=== PATIENT | male | born 1950 | race Caucasian/White ===

== ENCOUNTER 2021-01-10 18:23 | Emergency (ER) | payer MEDICARE, SELFPAY ==
[2021-01-10] VITALS (7 sets, daily range): BP systolic 113–139; BP diastolic 58–75; PULSE 65–79; RESP 16; TEMP 37.1; O2SAT 94–98; BMI 29.0
--- NOTE | 2021-01-10 18:40 | DI.RAD.S_ITS ---
PROCEDURE: XR CHEST 2V INDICATIONS: SOB/pop sensation in ribs TECHNIQUE: 2 views of the chest were acquired. COMPARISON: None. FINDINGS: Surgical changes and devices: None. Lungs and pleura: Lungs are clear. No pleural effusions or pneumothorax. Mediastinum: Mediastinal contours are normal. Heart size is normal. Bones and chest wall: No suspicious bony abnormalities. Soft tissues appear unremarkable. There is a right shoulder prosthesis. IMPRESSION: No acute cardiopulmonary disease. Dictated by: Sid Guan M.D. on 01/10/2021 at 18:58 Approved by: Sid Guan M.D. on 01/10/2021 at 18:59
[2021-01-10] MEDS: SODIUM CHLORIDE 0.9% 1,000 ML 150 ML IV (20:07)
--- NOTE | 2021-01-10 20:10 | ED_ITS ---
HPI - Chest Pain General Chief Complaint: Abdominal Pain Stated Complaint: RIGHT SIDE PAIN Time Seen by Provider: 01/10/21 19:54 Source: patient and family Mode of arrival: Ambulatory Limitations: no limitations History of Present Illness HPI narrative: This is a 71-year-old male comes emergency department with comp laint of right-sided chest and abdominal pain that started 3 days ago. Patient states he leaned over towards the right to reach across some furniture and felt a pop sensation. He has continued to have pain, it was initially just in the right chest but now radiating more into the right abdomen. Patient states he is quite uncomfortable. He has significant pain with movement, cough, sneeze, deep inhalation of if patient changes position. He denies fevers or chills. He denies any shortness of breath or worsening of his breathing other than it is painful to take a deep breath. He denies any nausea or vomiting. No cough. No hemoptysis. He denies any diarrhea, no constipation. No syncope or lightheadedness. Denies any dizziness. Denies any radiation of pain to his back or down his legs. Patient states he has a history of asthma which has not needed his meds for. He also takes Percocet and gabapentin for chronic pain. He has had 5 back surgeries, knee and shoulder surgery multiple abdominal surgeries including hernia repair with mesh which was subsequently infected, he had open wound for multiple days and hospitalization for 11 days which took a year and a half to heal fully. This was 2 or 3 years ago. He is allergic to codeine but states he tolerates other narcotics fine. Does not take any blood thinners. No tobacco, no alcohol, occasional THC. He is currently visiting family in the area and lives south of [facility] in [place]. Related Data Previous Rx's Medication Instructions Recorded meloxicam [Mobic] 7.5 mg PO DAILY PRN #14 tab 01/10/21 Allergies Allergy/AdvReac Type Severity Reaction Status Date / Time codeine Allergy Hives Verified 01/10/21 20:47 Review of Systems Review of Systems ROS Unobtainable: All systems reviewed & are unremarkable except as noted in HPI and below Patient History Medical History (Updated 01/11/21 @ 02:57 by Louise Webb DO) Asthma Substance Use Type: marijuana Exam Narrative Exam Narrative: GENERAL: Alert and oriented x three, well-nourished male in moderate distress. Patient is significantly more uncomfortable with movement. HEENT: Head normocephalic, atraumatic, EOMI, pupils reactive, face symmetric, moist mucous membranes NECK: Supple, full range of motion CARDIOVASCULAR: Regular rate and rhythm without murmurs, rubs or gallops. RESPIRATORY: Breath sounds equal bilaterally, no wheezes rales or rhonchi. Patient does have some point tenderness of the right ribs over the lateral ribs at 7 8 region. There is no ecchymosis, no flail chest with normal movement. ABDOMEN: Soft, for right upper quadrant tenderness. Normoactive bowel sounds all 4 quadrants. No guarding or rebound, rigidity, no mass or bruit. No ecchymosis or skin changes noted. No bulge or hernia noted. : No CVA tenderness EXTREMITIES: Normal range of motion, no clubbing or edema. Neurovascularly intact NEUROLOGICAL: Cranial nerves II through XII grossly intact. Moving all extremities SKIN: Warm, dry, no petechiae, no rashes or lesions. Initial Vital Signs Initial Vital Signs: Vital Signs Temperature 98.8 F 01/10/21 18:31 Pulse Rate 79 01/10/21 18:31 Respiratory Rate 16 01/10/21 18:31 Blood Pressure 126/74 01/10/21 18:31 Pulse Oximetry 96 01/10/21 18:31 Course Orders Ordered: ED Orders 01/10/21 18:40 XR chest 2V Stat 01/10/21 19:54 EKG-12 Lead Stat 01/10/21 20:34 Complete Blood Count AUTO DIFF Stat Comprehensive Metabolic Panel Stat Lipase Stat NT-proBNP (BNP-Adult 18+) Stat Troponin & CK Cardiac Panel Stat 01/10/21 21:01 D Dimer Stat Discontinued Medications Sodium Chloride (Normal Saline 0.9%) 1,000 mls @ 150 mls/hr IV CONT KRISTEL Last Infusion: 01/10/21 23:05 Dose: 0 mls/hr Documented by: [email or web address] Admin: 01/10/21 20:07 Dose: 150 mls/hr Documented by: [email or web address] Ketorolac Tromethamine (Ketorolac 30 Mg/Ml Vial) 15 mg IV NOW ONE Stop: 01/10/21 21:55 Last Admin: 06/07/21 22:02 Dose: 15 mg Documented by: [email or web address] Morphine Sulfate (Morphine 4 Mg/Ml Inj) 4 mg IV NOW ONE Stop: 01/10/21 20:41 Last Admin: 01/10/21 21:43 Dose: Not Given Documented by: [email or web address] Vital Signs Vital signs: Vital Signs - 8 hr 01/10/21 21:16 01/10/21 21:30 01/10/21 22:00 Pulse Rate 72 66 66 Respiratory Rate 16 Blood Pressure 113/73 121/75 Pulse Oximetry 96 96 96 01/10/21 22:01 01/10/21 22:30 01/10/21 23:00 Pulse Rate 66 65 65 Respiratory Rate Blood Pressure 117/58 L 139/75 119/74 Pulse Oximetry 96 94 96 MDM - Chest Pain Lab Data Attestation: I reviewed the patient's lab results. Result diagrams: 01/10/21 20:34 01/10/21 20:34 Labs: Lab Results 01/10/21 01/10/21 01/10/21 Range/Units 20:34 20:34 21:01 WBC 5.4 (4.5-11.0) X10^3/uL RBC 4.10 L (4.5-5.9) X10^6/uL Hgb 13.2 L (13.5-17.5) g/dL Hct 38.7 L (41-53) % MCV 94.3 (80-100) fL MCH 32.2 (26-34) PG MCHC 34.1 (30-36) % RDW 13.2 (11.6-14.8) % Plt Count 157 (150-400) X10^3/uL Neut % (Auto) 52.9 (50-75) % Lymph % (Auto) 31.4 (25-40) % [place] % (Auto) 8.6 (3-14) % Eos % (Auto) 6.7 H (2-4) % Baso % (Auto) 0.4 (0-2) % Neut # (Auto) 2900 (9118-9671) /uL Lymph # (Auto) 1700 (1827-8263) /uL [place] # (Auto) 500 (0-900) /uL Eos # (Auto) 400 (0-450) /uL Baso # (Auto) 0 (0-100) /uL D-Dimer < 200 (<230) ng/mL Sodium 140 (137-145) mmol/L Potassium 3.9 (3.4-5.1) mmol/L Chloride 108 H (98-107) mmol/L Carbon Dioxide 27 (22-32) mmol/L BUN 17 (9-20) mg/dL Creatinine 0.64 L (0.66-1.25) mg/dL Estimated GFR > 60.0 (>60) mL/min BUN/Creatinine Ratio 26.6 H (6-22) Glucose 118 H (80-110) mg/dL Calcium 9.2 (8.4-10.2) mg/dL Total Bilirubin 0.3 (0.2-1.3) mg/dL AST 24 (17-59) IU/L ALT 17 (<50) IU/L Alkaline Phosphatase 84 (38-126) U/L Total Creatine Kinase 117 (55-170) U/L CK-MB (CK-2) 1.24 (<2.37) ng/mL CK-MB (CK-2) Rel Index 1.1 L (1.5-5.0) % Troponin I < 0.012 (0.01-0.034) ng/mL NT-Pro-B Natriuret Pep 70 (<125) pg/mL Total Protein 7.1 (6.3-8.2) g/dL Albumin 4.0 (3.5-5.0) g/dL Globulin 3.1 (1.7-4.1) g/dL Albumin/Globulin Ratio 1.3 (1.0-2.8) Lipase 148 (23-300) U/L Imaging Data Chest x-ray: Radiologist's Impression: [address] [id number] ReportSigned Patient: Lino Vann R#: [id number]: 9Acct:[id number]/Sex: 71 / MDate of Service: 01/10/21Loc: EDAccession Number: [id number] Procedure: XR chest 2V Ordering Provider: Louise Webb D.O. PROCEDURE: XR CHEST 2V INDICATIONS: SOB/pop sensation in ribs TECHNIQUE: 2 views of the chest were acquired. COMPARISON: None. FINDINGS: Surgical changes and devices: None. Lungs and pleura: Lungs are clear. No pleural effusions or pneumothorax. Mediastinum: Mediastinal contours are normal. Heart size is normal. Bones and chest wall: No suspicious bony abnormalities. Soft tissues appear unremarkable. There is a right shoulder prosthesis. IMPRESSION: No acute cardiopulmonary disease. Dictated by: Sid Guan M.D. on 01/10/2021 at 18:58 Approved by: Sid Guan M.D. on 01/10/2021 at 18:59 ECG Data Attestation: I personally reviewed and interpreted this ECG as follows: Prior ECG tracings: not available for review Interpretation: Sinus rhythm rate of 74 PA 186 QRS 80 QTC of 417. No acute ST changes appreciated. No priors available for review. MDM Narrative Medical decision making narrative: Discussed with patient whole likely in this is musculoskeletal but the fact that his pain has changed from his chest and moved his abdomen he has tenderness right upper quadrant recommend either CT or ultrasound imaging. Patient does not wish to CT although he is concerned about the mesh. I would be more concerned about another cause that just coincided with his initial inciting event. Patient defers CT imaging until labs are back and he is agreeable and if there are alterations. We did discuss I recommend ultrasound of his right upper quadrant with his RUQ tenderness and changing loc ation of pain. Patient's labs were reviewed. After additional pain medication patient feels more comfortable at this time. His vitals have been stable here in the department. Labs show a hemoglobin of 13, elevated eosinophil count, D- dimer is negative with a chloride of 108, glucose of 118 lab abnormalities in his cardiac or abdominal labs. On recheck patient prefers for watchful waiting and defers ultrasound or CT imaging which did discuss would allow me to rule out more significant or emergent causes of his pain. He does take Percocet normally so discussed adding a dose of meloxicam to his daily medications for short-term pain control and strict return precautions. Patient feels c omfortable with this plan he is here in town for the next several days and plans to return back home after that. He was encouraged to follow up with this primary care he is doing well but continues to have discomfort. Discharge Plan Departure Patient Disposition: Home Clinical Impression: Acute right-sided thoracic back pain, Right sided abdominal pain Instructions: DI for Abdominal Pain-Adult Activity Restrictions/Additional Instructions: Follow up your physician in then next 2-3 days for recheck. You may continue your home medications as prescribed. You may take meloxicam 1 tablet every 12 hours as needed for pain. You may take this in addition to regular pain medication. Please return for fevers, lightheadedness or passing out, rapidly worsening abdominal, chest pain, pain radiating to her back flank, persistent vomiting, black or bloody stools or other new or concerning symptoms. Prescriptions: New meloxicam [Mobic] 7.5 mg tablet 7.5 mg PO DAILY PRN (Reason: pain) Qty: 14 RF: 0
[2021-01-10 20:42] LABS: Add Manual Diff / Slide Review NO; Basophils Absolute Auto 0 /uL (0-100); Basophils Percent Auto 0.4 % (0-2); Eosinophils Absolute Auto 400 /uL (0-450); Eosinophils Percent Auto 6.7 % (2-4); Hematocrit 38.7 % (41-53); Hemoglobin 13.2 g/dL (13.5-17.5); Lymphocytes Absolute Auto 1700 /uL (1100-4500); Lymphocytes Percent Auto 31.4 % (25-40); Mean Corpuscular HGB Conc 34.1 % (30-36); Mean Corpuscular Hemoglobin 32.2 PG (26-34); Mean Corpuscular Volume 94.3 fL (80-100); Monocytes Absolute Auto 500 /uL (0-900); Monocytes Percent Auto 8.6 % (3-14); Neutrophils Absolute Auto 2900 /uL (1500-7000); Neutrophils Percent Auto 52.9 % (50-75); Platelet Count 157 X10^3/uL (150-400); Red Cell Distribution Width 13.2 % (11.6-14.8); White Blood Cell Count 5.4 X10^3/uL (4.5-11.0)
[2021-01-10 21:02] LABS: Alanine Aminotransferase 17 IU/L (<50); Albumin Globulin Ratio 1.3 (1.0-2.8); Alkaline Phosphatase 84 U/L (38-126); Aspartate Aminotransferase 24 IU/L (17-59); BUN Creatinine Ratio 26.6 (6-22); Bilirubin Total 0.3 mg/dL (0.2-1.3); Blood Urea Nitrogen 17 mg/dL (9-20); Calcium 9.2 mg/dL (8.4-10.2); Carbon Dioxide 27 mmol/L (22-32); Chloride 108 mmol/L (98-107); Creatine Kinase 117 U/L (55-170); Estimated Glomerular Filt Rate > 60.0 mL/min (>60); Globulin 3.1 g/dL (1.7-4.1); Glucose 118 mg/dL (80-110); HEMOLYSIS 23 (0-50); Lipase 148 U/L (23-300); Potassium 3.9 mmol/L (3.4-5.1); Sodium 140 mmol/L (137-145); Total Protein 7.1 g/dL (6.3-8.2)
[2021-01-10] MEDS: MORPHINE 4 MG/ML INJ (21:07)
[2021-01-10 21:14] LABS: NT-proBNP (BNP-Adult 18+) 70 pg/mL (<125); Troponin I < 0.012 ng/mL (0.01-0.034)
[2021-01-10 21:17] LABS: CKMB % Relative Index 1.1 % (1.5-5.0); Creatine Kinase MB 1.24 ng/mL (<2.37)
[2021-01-10 21:23] LABS: D Dimer < 200 ng/mL (<230)
[2021-01-10] MEDS: KETOROLAC 30 MG/ML VIAL 15 MG IV (22:02)
== END 2021-01-10 23:15 | disposition home or self-care (01) ==
PROVIDERS: Emergency Provider Emergency Medicine
DX: R10.11 Right upper quadrant pain (principal); M54.6 Pain in thoracic spine; R06.02 Shortness of breath
CPT/HCPCS: 36415; 71046; 80053; 82550; 82553; 83690; 83880; 84484; 85025; 85379; 93005; 96361; 96374; 96375; 99284; J1885; J2270